=== PATIENT | female | born 1960 | race African-American/Black ===

== ENCOUNTER → 2019-09-21 | Outpatient (CLI) | payer OTHER ==
[~2019-09-21] MED LIST: ALPRAZOLAM ER1 MG PO; AMMONIUM LACTA225 GM; CELEXA 20 MG TA20 M1 PO; CLARITIN10 MG PO; D-20002000 UNIT; HYDROCHLOROTHIA25 M1 PO; KLOR-CON 1010 MEQ PO; LYRICA150 MG PO; NEXIUM 40 MG CA40 M1 PO; NORCO 5-325 TA1 EACH; NORVASC10 MG PO; RHINOCORT AQUA8.6 GM; XANAX XR1 MG PO; ZYRTEC 10 MG TA10 M1 PO
== END ==
LOC: RAD 12:37
DX: M48.07 Spinal stenosis, lumbosacral region (principal); M96.1 Postlaminectomy syndrome, not elsewhere classified; M25.78 Osteophyte, vertebrae; M47.812 Spondylosis without myelopathy or radiculopathy, cervical region; M48.02 Spinal stenosis, cervical region

== ENCOUNTER → 2019-10-20 | Day surgery (SDC) | payer OTHER ==
[~2019-10-20] MED LIST changes: +ASPIRIN EC81 M1 PO; +CARVEDILOL6.25 M1 PO; +DICLOFENAC SOD100 G1 TOP; +DOXYCYCLINE HY100 M3 PO; +FLONASE 0.05%50 MCG NARES; +FLUOROMETHOLONE5 ML OPHTHALMIC; +FOCUS FACTOR PO; +GABAPENTIN800 M1 PO; +LAC-HYDRIN FIV226 GM TOP; +LEVOTHYROXINE125 MCG PO; +METHOCARBAMOL750 MG PO; +MOVANTIK25 MG PO; +MULTI VITAMIN1 EACH PO; +OMEPRAZOLE40 MG PO; +OXYBUTYNIN 5 MG5 M2 PO; +OXYCODONE HCL10 MG PO; +TIZANIDINE4 MG/1 TA1 PO; +TRAMADOL 50 MG50 MG PO; +TRAZODONE HCL100 MG PO; +VENTOLIN HFA 1818 GM INH; +XIIDRA1 EACH OPHTHALMIC
== END | disposition home or self-care (01) ==
LOC: LAB 07:41
PROVIDERS: ATTEND Student in an Organized Health Care Education/Training Program
DX: Z01.812 Encounter for preprocedural laboratory examination (principal); Z11.59 Encounter for screening for other viral diseases; M54.5 Low back pain

== ENCOUNTER 2019-10-25 09:23 | Inpatient (IN) | payer OTHER ==
[2019-10-20 10:27] LABS: ABSOLUTE NEUTROPHILS 2.8 thou/uL (1.4-8.2); BASOPHILS 0.4 % (0.0-2.0); EOSINOPHILS 0.8 % (0.0-3.0); HEMATOCRIT 37.2 % (37.0-47.0); HEMOGLOBIN 12.4 gm/dL (12.0-15.0); LYMPHOCYTES 30.1 % (24.0-44.0); MCH 32.3 pg (26.0-34.0); MCHC 33.5 g/dL (28.0-37.0); MCV 96.4 fL (80.0-100.0); MONOCYTES 6.8 % (1.0-8.0); PLATELET COUNT 249 thou/uL (150-400); POLYS 61.9 % (36.0-66.0); RBC 3.86 mil/uL (4.20-5.00); WBC 4.5 thou/uL (4.0-11.0)
[2019-10-20 10:39] LABS: APTT 28.5 Seconds (24.5-32.8); PROTIME 10.1 Seconds (9.3-11.4)
[2019-10-20 10:45] LABS: URINE BILIRUBIN NEGATIVE (Negative); URINE BLOOD NEGATIVE (Negative); URINE CLARITY CLEAR; URINE COLOR YELLOW; URINE GLUCOSE-RANDOM* NEGATIVE (Negative); URINE KETONES NEGATIVE (Negative); URINE LEUKOCYTES-REFLEX NEGATIVE (Negative); URINE NITRITE-REFLEX NEGATIVE (Negative); URINE PROTEIN (DIPSTICK) NEGATIVE (Negative); URINE SPECIFIC GRAVITY >= 1.030 (1.005-1.035); URINE UROBILINOGEN 0.2 E.U./dl (0.2-1.0)
[2019-10-20 10:52] LABS: ALBUMIN 3.4 g/dL (3.4-5.0); CALCIUM 8.7 mg/dL (8.5-10.1); CREATININE 0.9 mg/dL (0.6-1.0); POTASSIUM 3.5 mmol/L (3.5-5.1); TOTAL BILIRUBIN 0.4 mg/dL (0.2-1.0); TOTAL PROTEIN 6.8 g/dL (6.4-8.2)
--- NOTE | 2019-10-20 11:52 | EKG ---
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
[2019-10-25] VITALS (9 sets, daily range): BP systolic 147–168; BP diastolic 88–113
[~2019-10-25] VITALS: Ht 170.2 cm; Wt 79.4 kg
--- NOTE | ~2019-10-25 | O ---
[facility] [place] [place] [address] OPERATIVE REPORT Name: GEORGE RODRIGUEZ Room #: 150-5 [facility] M.R.#: [id number] Admission: 10/25/19 Attend Phys: Otilio Doherty MD Discharge: Date of : 58 Report #: [id number] THIS REPORT FOR: cc: Carmel Wasserman MD,Carmel Doherty,Otilio Murray MD ~ CC: Otilio Wasserman DATE OF SERVICE: 10/25/2019 PREPROCEDURAL DIAGNOSES: Recurrent spinal stenosis, L2-S1; radiculopathy; degenerative disk disease and low back pain; right L3-L4 intraforaminal herniation, recurrent. POSTPROCEDURAL DIAGNOSES: Recurrent spinal stenosis, L2-S1; radiculopathy; degenerative disk disease and low back pain; right L3-L4 intraforaminal herniation, recurrent. PROCEDURE: Bilateral laminectomy with partial facetectomy and neural foraminotomy redo L2, bilateral laminectomy with partial facetectomy and neural foraminotomy redo L3, bilateral laminectomy with partial facetectomy and neural foraminotomy redo L4, bilateral laminectomy with partial facetectomy and neural foraminotomy redo L5, bilateral laminectomy with partial facetectomy and neural foraminotomy S1, serial fluoroscopic visualizations requiring fluoroscopic exposure and surgeon interpretation. SURGEON: Otilio Doherty MD RAM CAR OPERATOR SURGEON: KEYONA Alfred ANESTHESIA: General via endotracheal tube. INDICATIONS: The patient had intractable back and claudicant type nerve pain, at times also radicular components. She has proved refractory to multiple modality conservative management, requested that we proceed with operative intervention. She has had previous lumbar surgeries and is decompressed previously from L2 to sacrum. The patient again having proved refractory to multiple modality conservative management and remaining significantly debilitated, has asked that we proceed with operative intervention. She has undergone flexion, extension x-rays that revealed no evidence of significant malalignment or instability. For that reason, we have proposed simple redo decompression L2 to the sacrum. The patient agrees. She understands the risks, the benefits. She understands the risks to be , DVT, pulmonary embolism, paraplegia, loss of bowel and bladder function, loss of sexual function, possibility of bleeding, bleeding requiring transfusion, transfusion attendant [address] [address] OPERATIVE REPORT Name: GEORGE RODRIGUEZ Room #: 150-5 [facility] Terri.Kathleen#: [id number] Admission: 10/25/19 Attend Phys: Otilio Doherty MD Discharge: Date of : 58 Report #: [id number] risks of AIDS and hepatitis infection, instability, the need for revision, prolonged hospital stay, dural leak, spinal headache, infection and again she requests we proceed. She understands the disk herniation can recur at L3-L4, stenosis can recur. DESCRIPTION OF PROCEDURE: The patient was brought to the operating room and administered general anesthesia via endotracheal tube. Lower extremities were treated with SALOMON hose and intermittent compression stockings. She was MRSA culture positive, so she was treated with Bactroban and received vancomycin as a perioperative antibiotic. The patient was then positioned on the Yuniel table in the prone position with all bony prominences padded appropriately. Care was taken to ensure the shoulders were not abducted more than 90 degrees and the elbows flexed more than 90 degrees. There was no undue pressure on the cubital or carpal canals. The area of the anterior superior iliac spine was well padded to protect the lateral femoral cutaneous nerve. Hips and knees were well padded and there was no pressure on the dorsum of the feet. The patient's low back was defatted with alcohol, visualized under fluoroscopy for the first of serial fluoroscopic visualizations requiring exposure to fluoroscopy and physician interpretation. We marked the incision and then sterilely prepped and draped, infiltrated the skin with 0.5% Marcaine, 1:200,000 epinephrine. Sharp dissection was continued down through the skin, the subcutaneous tissues and we carefully refashioned an approach from L2 to sacrum, outlining the bony margin of the previous laminectomy without inadvertently causing dural penetration of the unprotected dura. With this completely exposed and our self-retaining retractor was placed, we began cephalad on the right and began the redo decompression extending the decompression more cephalad including wide decompressive laminectomy, partial facetectomies, ligament resection, all to affect a partial facetectomy, neural foraminotomies from L2 to the sacrum. The patient after being completed on the right, we moved to the left and performed exactly the same procedure. We then turned our attention again to the right side where there was a known herniated disk and this was addressed by decompressing to the level of the pedicles bilaterally incising the disk and proceeding with a straight up and down biting pituitary until copious amounts of disk material were removed from the foramen. We could then pass a ade Brumfield dental elevator and an Beny curette and it was tamped down away from the nerve root and the nerve roots all probed completely free with a dental elevator and a sound. With the nerve root probing completely free, the diskectomy complete, we copiously irrigated with a liter of antibiotic-containing solution. We placed pledgets, thrombin-soaked Gelfoam over the naked dura where it existed from the widened decompression. We obtained meticulous hemostasis. We closed the deep fascial layer with 0 Ethibond in [id number] interrupted fashion, deep subQ with 0 Vicryl, superficial subQ with 2-0 Vicryl, skin with stainless steel preston, dressed with Xeroform, sterile dressings, sponges and a bioclusive. The patient tolerated the procedure well. There were no technical misadventures, no evidence of dural leak, no significant problems manipulating dura or protecting [address] [address] OPERATIVE REPORT Name: GEORGE RODRIGUEZ Room #: 150-5 [facility]..#: [id number] Admission: 10/25/19 Attend Phys: Otilio Doherty MD Discharge: Date of : 58 Report #: [id number] the dura and nerve roots and the patient's final blood loss was 100 mL. There were no specimens and fluoroscopy had confirmed our position on several occasions to ensure the correct neural foramen levels and the diskectomy level was correct before proceeding with further destruction of the bone and ligament. When complete, all nerve roots probed completely free. The patient is being forwarded to the recovery room to continue prophylactic antibiotics, serial neurovascular exams and when stable to discharge to the floor to continue with the same. By: 1417 1505 Otilio Doherty MD /nt
--- NOTE | 2019-10-25 18:15 | NUR ---
Pt came to unit from recovery room approx 1600. Pt a&ox4. States she has a lot of pain from her back. Dressing c/d/i. CONTROL DIRECTOR pump initiated. Able to tolerate liquids. Advanced to reg diet. Family at bedside. Admission nurse completing admission at this time. Call light within reach.
--- NOTE | 2019-10-25 19:23 | NUR ---
PATIENT ADMITTED FROM OR WITH REDO LAMINECTOMY, PARTIAL LS1-3, PATIENT ALERT AND DROWSY. C/O PAIN WITH BACK AREA 10/10, DIRECTOR OF DIGITAL MARKETING STARTED PER CINDY/SHANNAN. TELFA TEGADERM LOWER BACK. NO C/O NAUSEA, DIET UPGRADED. PATIENT HAS MULTIPLE AREAS OF PAIN. ADMISSION DONE, REPORT GIVEN TO CINDY.
--- NOTE | 2019-10-26 04:12 | NUR ---
ASSUMED PT CARE AT APPROX 1900.PT'S PAIN MANAGED WITH A GENERAL SURGERY PHYSICIAN ASSISTANT PUMP.DRGS ON HER BACK SATURATED.GENERAL SURGERY PHYSICIAN ASSISTANT MORPHINE REPLACED X 1.PT ON CAPNOGRAPHY DUE TO GENERAL SURGERY PHYSICIAN ASSISTANT USE.EXTERNAL FEMALE CATH IN PLACE,PT VOIDING.PT C/O NAUSEA X1,MANAGED WITH MED.PT ABLE TO REPOSITION HERSELF IN BED.FALL PRECAUTIONS IN PLACE.CALL LIGHT WITHIN REACH.
[2019-10-26 05:38] VITALS: BP 158/93
[2019-10-26 06:11] LABS: ABSOLUTE NEUTROPHILS 5.2 thou/uL (1.4-8.2); BASOPHILS 0.4 % (0.0-2.0); EOSINOPHILS 0.1 % (0.0-3.0); HEMATOCRIT 37.3 % (37.0-47.0); HEMOGLOBIN 12.8 gm/dL (12.0-15.0); MCH 32.3 pg (26.0-34.0); MCHC 34.3 g/dL (28.0-37.0); MCV 94.2 fL (80.0-100.0); MONOCYTES 8.6 % (1.0-8.0); PLATELET COUNT 214 thou/uL (150-400); POLYS 67.9 % (36.0-66.0); RBC 3.95 mil/uL (4.20-5.00); RDW 13.4 % (10.5-14.5); WBC 7.7 thou/uL (4.0-11.0)
[2019-10-26 06:26] LABS: CALCIUM 8.6 mg/dL (8.5-10.1); CREATININE 0.8 mg/dL (0.6-1.0); POTASSIUM 3.5 mmol/L (3.5-5.1)
[2019-10-26 07:03] VITALS: BP 154/78
--- NOTE | 2019-10-26 09:07 | NUR ---
ASSESSMENT: CM REVIEWED CHART AND SPOKE WITH PATIENT. PT IS HERE DUE TO LUMBAR LAMINECTOMY. PT REPORTS SHE LIVES IN AN APT ALONE. PT REPORTS SHE HAS NO STEPS TO ENTER OR ONCE INSIDE. PT STATES SHE HAS A CANE AND WALKER AT HOME TO ASSIST WTIH AMBULATION. PT REPORTS SHE ALSO HAS A CAREGIVER THROUGH [employer]ICA[employer] THAT COMES 7 DAYS A WEEK FOR 3.5 HOURS A DAY AND REPORTS THAT TIME MIGHT ALSO BE GETTING INCREASED. PT REPORTS THAT SHE HAS HAD HH IN THE PAST AND HAS USED [facility] . CM WAS NOTIFIED BY [facility] THAT PHYSICIAN HAD MADE A REFERRAL FOR HH. PT REPORTS SHE IS AGREE WITH [facility]. CM FAXED REFERRAL AND AWAITING DISCHARGE ORDERS AT THIS TIME. CM WILL CONTINUE TO FOLLOW TO ASSIST NEEDED.
[2019-10-26 12:00] VITALS: BP 154/78
--- NOTE | 2019-10-26 15:03 | NUR ---
Assumed care of pt at 0700. Pt a&ox4. NEW ORDER CLERK pump discontinue per dr giron. {rn pain meds administered per pt request. Surgical dressing changed by doctor's PA. Gabapentin and carvedilol restarted. Pt will need rehab upon discharge. Call light within reach. Will continue to monitor.
--- NOTE | 2019-10-26 15:11 | NUR ---
ON-GOING ASSESSMENT: VASYL SPOKE WITH TAYLOR HERRERA AT [facility] WHO REPORTS THEY CAN ACCEPT PATIENT IF SHE IS TOLERATING PO MEDICATION. SHARON IS OFF TOMORROW BUT CONTACT MAIN OFFICE AT [facility] FOR ASSISTANCE AT [phone].
[2019-10-26 20:05] VITALS: BP 161/92
[2019-10-27 05:25] VITALS: BP 186/96
[2019-10-27 07:56] LABS: ABSOLUTE NEUTROPHILS 3.7 thou/uL (1.4-8.2); BASOPHILS 0.4 % (0.0-2.0); EOSINOPHILS 0.3 % (0.0-3.0); HEMATOCRIT 37.8 % (37.0-47.0); HEMOGLOBIN 12.7 gm/dL (12.0-15.0); MCH 32.1 pg (26.0-34.0); MCHC 33.5 g/dL (28.0-37.0); MCV 95.8 fL (80.0-100.0); MONOCYTES 10.2 % (1.0-8.0); PLATELET COUNT 200 thou/uL (150-400); POLYS 65.1 % (36.0-66.0); RBC 3.94 mil/uL (4.20-5.00); RDW 13.7 % (10.5-14.5); WBC 5.7 thou/uL (4.0-11.0)
[2019-10-27 08:08] LABS: CREATININE 0.9 mg/dL (0.6-1.0); POTASSIUM 3.2 mmol/L (3.5-5.1)
--- NOTE | 2019-10-27 13:47 | NUR ---
[facility] requesting updated therapy notes and MAR to ensure pt is tolerating po meds. They will have beds available tomorrow if pt is approved for admission. Case discussed with the care team. Dc habitat conservation planner to fax updates this afternoon for final acceptance at [facility].
[2019-10-27 16:00] VITALS: BP 160/90
--- NOTE | 2019-10-27 16:07 | NUR ---
FAXED CLINICAL UPDATE TO [facility] SPOKE WITH SUZIE IN ADM SHE RECEIVED UPDATE. DP TO FOLLOW.
--- NOTE | 2019-10-27 17:52 | NUR ---
PT ASSESSED AT START OF SHIFT. PT PROGRESSING SOME. PAIN BETTER CONTROLLED W/ PO MEDS. AMBULATED SOME W/ THERAPY AND SAT UP IN THE CHAIR FOR FEW HOURS. EATING AND VOIDING WELL TODAY. NO BM THIS SHIFT. PT LOOKING FORWARD TO HAVING REHAB THERAPY.
[2019-10-27 19:40] VITALS: BP 161/78
[2019-10-28] VITALS (7 sets, daily range): BP systolic 153–192; BP diastolic 86–119
--- NOTE | 2019-10-28 03:14 | NUR ---
PT'S PAIN GETTING BETTER,MANAGED WITH PO MEDS ALL NIGHT.UP WITH SBA TO THE BSC,VOIDING WELL.VANCO ADMINISTERED PER ORDER.PT LOOKING FORWARD TO DC TO [facility] LATER TODAY.FALL PRECAUTIONS IN PLACE,CALL LIGHT WITHIN REACH.
[2019-10-28 04:53] LABS: ABSOLUTE NEUTROPHILS 3.1 thou/uL (1.4-8.2); BASOPHILS 0.4 % (0.0-2.0); EOSINOPHILS 0.8 % (0.0-3.0); HEMATOCRIT 37.3 % (37.0-47.0); HEMOGLOBIN 12.3 gm/dL (12.0-15.0); LYMPHOCYTES 29.9 % (24.0-44.0); MCH 31.8 pg (26.0-34.0); MCHC 32.9 g/dL (28.0-37.0); MCV 96.5 fL (80.0-100.0); MONOCYTES 10.8 % (1.0-8.0); PLATELET COUNT 192 thou/uL (150-400); POLYS 58.1 % (36.0-66.0); RBC 3.86 mil/uL (4.20-5.00); RDW 13.4 % (10.5-14.5); WBC 5.3 thou/uL (4.0-11.0)
[2019-10-28 05:08] LABS: CALCIUM 8.5 mg/dL (8.5-10.1); CREATININE 0.9 mg/dL (0.6-1.0); POTASSIUM 3.3 mmol/L (3.5-5.1)
--- NOTE | 2019-10-28 11:24 | NUR ---
DISCHARGE NOTE: OBIE reviewed chart and spoke with nursing and hospitalist. Pt's blood pressure was elevated this morning. BP to be checked again around 1300. Awaiting to find out if pt is medically stable for discharge to [facility] today. OBIE spoke with Rosario at [facility], who states they are able to accept pt today and would like transportation to be scheduled for 1500. OBIE faxed clinical updates to [facility] for review. OBIE met with pt at bedside to provide update. Pt is agreeable with plan for discharge to [facility] later today or when medically stable. Chart copy requested. OBIE is following to assist as needed with discharge planning.
[2019-10-28] MEDS ORDERED: CARVEDILOL12.5 MG PO (13:50)
[2019-10-28] MEDS ORDERED: HEPARIN SO5000 UNIT/ SUBQ (13:50)
[2019-10-28] MEDS ORDERED: MIRALAX17 GM PO (13:50)
[2019-10-28] MEDS ORDERED: COLACE100 MG PO (13:50)
[2019-10-28] MEDS ORDERED: PERCOCET 10-321 EACH PO (13:53)
[2019-10-28] MEDS ORDERED: BISACODYL10 MG RECTAL (13:54)
[2019-10-28] MEDS ORDERED: HYDRALAZINE 2525 MG PO (14:01)
--- NOTE | 2019-10-28 14:04 | NUR ---
PT A&OX4, UNSTABLE VITAL SIGNS (BP). COLLECTIVE BARGAINING SPECIALIST NOTIFIED AND TREATED BP. PT ORIENT TO BOWEL AND BLADDER, REG DIET, 2 IV'S LEFT AND RIGHT AC. PAIN MEDS GIVEN BEFORE PT THERAPY. PT D/C TO [facility].
--- NOTE | 2019-10-28 15:19 | NUR ---
3 ATTEMPTS TO CONTACT ERNESTO AT [facility] TO PASS ON REPORT FROM [place] TO ERNESTO AT [facility]. NOT RESPONSE, LEFT MESSAGE AT [phone].
== END 2019-10-28 15:07 | DRG 517 ==
LOC: OR 09:23 → TBA 09:23 → OR 09:29 → 4S 16:02 → TBA 16:02 → 4S 10-26 13:00
DX: M47.27 Other spondylosis with radiculopathy, lumbosacral region (principal); M51.16 Intervertebral disc disorders with radiculopathy, lumbar region; I10 Essential (primary) hypertension; I73.9 Peripheral vascular disease, unspecified; G89.29 Other chronic pain; M54.9 Dorsalgia, unspecified; M10.9 Gout, unspecified; G62.9 Polyneuropathy, unspecified; M48.07 Spinal stenosis, lumbosacral region; E87.6 Hypokalemia; K59.00 Constipation, unspecified; Z98.84 Bariatric surgery status; Z90.49 Acquired absence of other specified parts of digestive tract
CPT/HCPCS: 10102; 50010; 50101; 50402; 50850; 51878; 56524; 56526; 56528; 56529; 62110; 62900; 70005